=== PATIENT | male | born 1945 | race Caucasian/White ===

== ENCOUNTER → 2018-12-09 | Outpatient (CLI) | payer OTHER ==
[~2018-12-09] MED LIST: AUGMENTIN 875875 MG PO; BACTRIM; CARAFATE 1 GM TA1 G1 GT; CLEOCIN HCL300 MG PO; PRIMIDONE50 MG PO; PROPRANOLOL 1010 MG PO; TYLENOL325 MG PO
[2018-12-09 12:05] LABS: ABSOLUTE EOSINOPHILS 0.2 thou/uL (0.0-0.7); ABSOLUTE LYMPHOCYTES 1.6 thou/uL (0.8-5.3); ABSOLUTE MONOCYTES 0.5 thou/uL (0.0-1.2); ABSOLUTE NEUTROPHILS 1.8 thou/uL (1.6-8.1); BASOPHILS 0.7 %; EOSINOPHILS 4.9 %; HEMATOCRIT 44.9 % (42.0-52.0); HEMOGLOBIN 15.9 gm/dL (14.0-18.0); LYMPHOCYTES 38.4 %; MCH 32.4 pg (26.0-34.0); MCHC 35.3 g/dL (28.0-37.0); MCV 91.8 fL (80.0-100.0); MONOCYTES 12.9 %; MPV 7.3 fl. (7.2-11.1); NUCLEATED RBCS 0 /100WBC; PLATELET COUNT* 196 thou/uL (150-400); POLYS 43.1 %; RBC 4.89 mil/uL (4.50-6.00); RDW-CV 13.3 % (10.5-14.5); WBC 4.2 thou/uL (4.0-11.0)
[2018-12-09 12:28] LABS: CALCIUM 8.7 mg/dL (8.5-10.1); CREATININE 1.1 mg/dL (0.6-1.3); POTASSIUM 4.6 mmol/L (3.5-5.1); TOTAL BILIRUBIN 0.2 mg/dL (<0.1-1.0); TOTAL PROTEIN 7.1 g/dL (6.4-8.2)
== END ==
LOC: M.LAB 11:39
PROVIDERS: Internal Medicine
DX: R07.9 Chest pain, unspecified (principal); J02.9 Acute pharyngitis, unspecified